=== PATIENT | female | born 1935 | race Caucasian/White ===

== ENCOUNTER → 2023-10-11 11:08 | Outpatient (REF) | payer OTHER, SELFPAY | LOC: HWRCS 11:08 | PROVIDERS: ATTENDING PHYSICIAN Family Medicine | DX: I10 Essential (primary) hypertension (principal); N18.31 Chronic kidney disease, stage 3a; R06.00 Dyspnea, unspecified | CPT/HCPCS: 93306 ==

== ENCOUNTER 2024-09-15 21:49 | Inpatient (IN) | payer OTHER, SELFPAY ==
[2024-09-15 13:41] VITALS: BP 160/104
[2024-09-15 13:56] LABS: % Basophils 0.3 % (0-2); % Eosinophils 0.7 % (0-6); % Immature Granulocytes 0.3 % (0-0.5); % Lymphocytes 11.8 % (20.5-51.1); % Monocytes 6.3 % (1.7-9.3); % Neutrophils 80.6 % (42.2-75.2); Absolute Eosinophils 0.1 10^3/uL (0-0.7); Absolute Lymphocytes 1.6 10^3/uL (1.2-3.4); Absolute Monocytes 0.9 10^3/uL (0.1-0.6); Absolute Neutrophils 10.8 10^3/uL (1.4-6.5); Hematocrit 40.1 % (37.0-47.0); Hemoglobin 13.7 g/dL (12.0-16.0); Mean Corp Hgb Conc. 34.2 g/dL (33.0-37.0); Mean Corpuscular Hgb 29.5 pg (27.0-31.0); Mean Corpuscular Volume 86.4 fL (81.0-99.0); Mean Platelet Volume 9.5 fL (7.4-10.4); Nucleated Red Blood Cells % 0 %; Platelet Count 201 10^3/uL (130-400); Red Blood Cell Count 4.64 10^6/uL (4.20-5.40); Red Cell Dist. Width 13.2 % (11.5-14.5); White Blood Cell Count 13.5 10^3/uL (4.8-10.8)
[2024-09-15 14:09] LABS: ALT (SGPT) 17 U/L (0-35); AST (SGOT) 20 U/L (14-36); Albumin 4.1 g/dl (3.5-5.0); Alkaline Phosphatase 65 U/L (38-126); Blood Urea Nitrogen 22 mg/dl (7-17); Calcium 9.8 mg/dl (8.4-10.2); Carbon Dioxide 25 mmol/L (22-30); Chloride 105 mmol/L (98-107); Glucose 106 mg/dl (70-99); Potassium 4.1 mmol/L (3.5-5.1); Sodium 138 mmol/L (135-145); Total Bilirubin 0.7 mg/dl (0.2-1.3); Total Protein 6.7 g/dl (6.3-8.2); eGFR > 60.00
[2024-09-15 16:40] VITALS: BMI 23.1
--- NOTE | 2024-09-15 16:42 | ED.GENMED ---
History of Present Illness
General
Chief Complaint: Cold/Flu/URI Symptoms
Source: patient and physician (Dr. Rebollar states patient has had cough and congestion for weeks, and was put on Ceftin 250 mg since 09/08/2024 for URI.)
Exam Limitations: none
Time Seen by Provider: 09/15/24 16:27
Nursing documentation reviewed up to this point in time: agreed with
History of Present Illness
History of Present Illness:
89-year-old female presents emergency department due to cough congestion for weeks, and abdominal cramping today.
Past History
Past History
ED Past Medical History: HTN, Hypercholesterolemia and Other (Glaucoma, migraines)
ED Past Surgical History: Other (Basal cell removed)
Social History
Tobacco: Non-smoker
Alcohol: Occasional
Personal:
Living: with family
Review of Systems
Review of Systems
Allergies reviewed?: Yes
All Other Systems: Not applicable
Constitutional: Reports no symptoms
EENT: Reports no symptoms
Respiratory: Reports cough
Cardiac: Reports no symptoms
ABD/GI: Reports no symptoms
: Reports no symptoms
Musculoskeletal: Reports no symptoms
Skin: Reports no symptoms
Neurological: Reports no symptoms
Endocrine: Reports no symptoms
Hematologic/Lymphatic: Reports no symptoms
Psychiatric: Reports no symptoms
Phy Exam
Physical Exam
Physical Exam:
Physical Exam
General: no apparent distress, not acutely ill
Neck: supple. no meningeal signs. normal posterior pharynx
Heart: s1/s2 regular rate and rhythm, no murmur. equal radial
pulses.
HEENT: Pupils equal round reactive to light, EOMI
Lungs: no acute respiratory distress. clear bilaterally
Abdomen: normal bowel sounds. Mild lower abdominal tenderness. no CVAT
Neuro: alert and oriented. no focal neurological deficits cranial nerves II through XII intact
Skin: no rash
Psychiatric: well kept. interactive and cooperative
Extremities: no edema. no calf tenderness. negative homans. good distal pulses
Course
Orders/Labs/Results
Orders:
Orders
09/15/24 13:45
CR Chest - 2 Views Urgent
Comment:
Reason For Exam: cough
09/15/24 13:49
Complete Blood Count/With Diff Urgent
Comprehensive Metabolic Panel Urgent
09/15/24 16:41
CT Abd/pel W Iv And Oral Contr Urgent
Comment:
Reason For Exam: lower abd pain, stool change
Iohexol [Omnipaque] See Protocol PO NOW STA
09/15/24 20:08
Ampicillin/Sulbactam 3 grams IVPB NOW Ampicillin/Sulbactam 3 G [Unasyn] 3 gm 0.9% Sodium Chloride 100 ml [Nss] 100 ml IV NOW
Abnormal Lab Results
09/15/24
13:49
WBC 13.5 H 10^3/uL
(4.8-10.8)
Absolute Neuts (auto) 10.8 H 10^3/uL
(1.4-6.5)
Absolute Monos (auto) 0.9 H 10^3/uL
(0.1-0.6)
Neutrophils % 80.6 H %
(42.2-75.2)
Lymphocytes % 11.8 L %
(20.5-51.1)
BUN 22 H mg/dl
(7-17)
Glucose 106 H mg/dl
(70-99)
09/15/24 13:49
09/15/24 13:49
Vital Signs
Initial and Last Documented VS:
Initial Vital Signs
Temp Pulse Resp BP Pulse Ox
100.1 F 94 16 160/104 98
09/15/24 13:41 09/15/24 13:41 09/15/24 13:41 09/15/24 13:41 09/15/24 13:41
Last Documented Vital Signs
Temp Pulse Resp BP Pulse Ox
100.1 F 94 16 160/104 98
09/15/24 13:41 09/15/24 13:41 09/15/24 13:41 09/15/24 13:41 09/15/24 13:41
MDM/Problems Addressed
Differential Diagnosis Includes:
Pneumonia, diverticulitis, colitis
MDM/Problems Addressed:
89-year-old female with colitis, suspect infectious cause. Admit to hospitalist for further treatment.
Chronic conditions affecting care: HTN
Acute Exacerbation and/or Progression of Chronic Illness: HTN
*Radiology
Radiology exam reviewed: radiology read reviewed (CT abdomen pelvis CT ab pelvis shows severe colitis, splenic artery aneurysm, renal cysts, chest x-ray no acute findings)
*Pulse Oximetry
Patient hypoxic: no
*Critical Care Note
Total Time (30-74mins, 75-104mins- exclusive of procedures): Not Applicable
Patient Management
Social determinants of health affecting care: Living situation and Strong social support
Discussion with other providers: Hospitalist
Escalation/DeEscalation of care consider admission/obs:
Admission indicated
ED Attending Note
-
Portions of this chart may have been created with voice recognition software.� Occasional wrong word or��sound alike� substitutions may have occurred due to the inherent limitations of voice recognition software.
Discharge Plan
Departure
Patient Disposition: Admit
Date of Disposition: 09/15/24
Time of Disposition: 19:56
Admit to: Med/Surg
Presentation/result/management discussed w/ accepting MD/DO: Hospitalist
Patient with high blood pressure during this ER visit?: Yes
Condition: Good
Discharge Problem:
Colitis
Prescriptions:
No Action
simvastatin 10 MG tablet
10 mg PO QPM
latanoprost 0.005 % drops
1 drp LEFT EYE HS
therapeutic multivitamin Tablet
1 tab PO DAILY
aspirin 81 mg Tablet,Delayed Release (Dr/Ec)
81 mg PO QPM
telmisartan 20 mg tablet
20 mg PO QPM
polyethylene glycol 3350 17 gram/dose powder
17 g PO DAILY Qty: 510 0RF
Referrals:
Vinny Rebollar, DO [Family Provider] -
Interventions
Interventions:
*Risk Screen - Suicide Last Done: 09/15/24 13:41
*General Assessment Last Done: 09/15/24 13:41
*Neglect/Abuse Screening Last Done: 09/15/24 13:41
*ED- Fall Risk Assessment Last Done: 09/15/24 13:41
*ED COVID-19 Vaccine History Last Done: 09/15/24 13:41
ED- Pulmonary Assessment Last Done: 09/15/24 16:35
Discharge Date and Time
Print Language: FRISIAN
[2024-09-15] MEDS: OMNIPAQUE 50 ML PO (16:54)
[2024-09-15 20:17] VITALS: BP 143/80
--- NOTE | 2024-09-15 20:32 | HPS.HSE ---
Addendum entered and electronically signed by Humza Ortega DO 09/15/24 22:17:
Patient seen and examined independently. Agree with findings and plan as set forth by DANTE He.
Patient is an 89y F with PMH significant for hypertension who presents to ED complaining of abdominal cramping with urinary and fecal frequency overnight. Patient states that she has been dealing with cough, cold. sinus symptoms for several
weeks. She has taken two recent courses of antibiotics including amoxicillin and Ceftin (which she is still on). Last PM, patient noted lower abdominal cramping. She states that she was up multiple times in the night to urinate and pass her
bowels - which is quite unusual for her. Bowels were described as small volume and 'pebbly'. Here in the ED, patient has had a single episode of loose stools diarrhea.
CT scan done in the ED shows significant colitis.
Ass:
Colitis
Sinusitis
Benign Hypertension
Plan:
Admit for further evaluation and treatment.
Empiric abx for now.
Given recent abx use, would begin PO Vanco pending CDiff studies.
Check stool cultures, etc (patient had loose stools here in the ED).
Supportive care including IVFs, pain control, etc.
GI evaluation for additional recommendations.
Supportive care for sinus symptoms - doubt additional abx will be helpful for this issue.
Continue usual home medications.
Original Note:
Family Physician
-
Family Physician: Vinny Rebollar
Chief Complaint
-
Sinus tenderness, nasal congestion, pressure in ears, generalized abdominal cramping with decreased appetite for the past 2 days
History of Present Illness
89-year-old female complaining of abdominal cramping today along with cough, nasal congestion with sinus pressure for the past several weeks. She reports she was put on amoxicillin for 2 weeks in the beginning of August it did not help her nasal
congestion postnasal drip and sinus pressure along with low-grade fevers. She was then put on Ceftin on 09/08/2024 for upper respiratory infection by her PCP Dr. Rebollar of which she has taken 7 out of 14-day dose. She noted some abdominal cramping
over the few weeks but contributed to swallowing nasal mucus however over the past 2 days the cramping has become worse with decreased appetite and some nausea she has been eating a regular diet has had no fever, chills, vomiting, mucus in stool or
blood chest pain, palpitations, shortness of breath, headache, diarrhea. She reports she has had some pebble-like stool with some formed stringy like stool but no mucus her last colonoscopy was years ago with Dr. Morales at that time she was told she
had diverticulosis she has never had history of diverticulitis or colitis. She did develop a low-grade fever 100.1 F while here. She complains of frontal and maxillary sinus point tenderness with erythematous nasal mucosa and pressure in her ears.
She has past medical history of hypertension hyperlipidemia, glaucoma, migraines, basal cell carcinoma with removal nose, diverticulosis.
Medical History
Past Medical History
Past Medical History: Reports Other
Additional Past Medical History:
hypertension
hyperlipidemia
glaucoma
migraines
basal cell carcinoma with removal nose
diverticulosis.
Past Surgical History: Reports Other
Additional Past Surgical History:
basal cell carcinoma with removal nose
Social History
Tobacco: Former Smoker (Quit 50 years ago)
Alcohol: Daily (1 glass of wine daily)
Drug: None
Personal: Single
Employment: Retired
Family History
Family History: Other (Mother history 59 heavy smoker of lung cancer, father 68 [place], 1 sister healthy and living in [place])
Allergies / Home Medications
Allergies reflects when Allergies were last updated in [employer].
Home Medications with original date entered in [employer]
Allergy/Medication List:
Allergies
Allergy/AdvReac Type Severity Reaction Status Date / Time
No Known Allergies Allergy Verified 10/01/22 12:59
Home Medications
simvastatin 10 mg tablet 10 mg PO QPM High cholesterol 07/29/10
aspirin 81 mg tablet,delayed release 81 mg PO QPM Blood clot prevention/tx 10/01/22
latanoprost 0.005 % eye drops 1 drp LEFT EYE HS Eye condition 10/01/22
telmisartan 20 mg tablet 20 mg PO QPM Blood clot prevention/tx 10/01/22
therapeutic multivitamin 1 tab PO DAILY Supplement 10/01/22
Ceftin 250 mg PO BID 09/15/24
Review of Systems
-
History Source: Patient
A 12 point ROS was completed and negative except as noted: Yes
Constitutional: Denies Fever, Fatigue or Chills
EENT: Reports Other (Erythematous nasal mucosa, fluid behind bilateral tympanic membranes but clear landmarks are visible, sinus point tenderness frontal and maxillary sinuses)
Respiratory: Reports Cough (Post postnasal drip); Denies Trouble Breathing
Cardiac: Denies Chest Pain, Diaphoresis, Palpitations or Syncope
Abdomen/GI: Reports Abdominal Pain (Generalized), Nausea (X 2 days), Constipated and Other (Hard pebble-like stool with occasional string-like formed stool no mucus or blood); Denies Vomiting or Diarrhea
: Denies Dysuria, Frequency, Flank Pain, Incontinence, Difficulty Voiding or Urgency
Musculoskeletal: Denies Joint Pain or Edema
Skin: Denies Itching or Rash
Neurological: Denies Dizzy, Headache or Weakness
Endocrine: Reports No Symptoms
Hematologic/Lymphatic: Reports No Symptoms
Psych: Reports Calm
Physical Exam
Vital Signs
Vital Signs
Temp Pulse Resp BP Pulse Ox
100.1 F 94 16 143/80 98
09/15/24 13:41 09/15/24 13:41 09/15/24 13:41 09/15/24 20:17 09/15/24 20:17
Physical Exam
General: Conversant; No Fever or Chills
HEENT: NormoCephalic, Anicteric, PERRLA, [place] Conjunctivae, No Ptosis, Ears Appear Normal, Neck Nontender and Other (Erythematous nasal mucosa, fluid behind bilateral tympanic membranes but clear landmarks are visible, sinus point tenderness frontal
and maxillary sinuses); No Pharyngeal Erythema
Respiratory: Clear; No Wheezes, Rales or Rhonchi
Cardiac: S1/S2 and Regular Rhythm
Breast: Deferred by me
GI: Soft, Non Distended, Normal Bowel Sounds (Generalized), Tender and No Hepatosplenomegaly
Genito-urinary: Deferred by me
Musculoskeletal: No Clubbing, No Cyanosis and No Edema
Skin: Warm and Dry; No Rash
Neuro: AO x 3, No Motor Deficits, Cranial Nerves Intact and No Sensory Deficits; No Slurred Speech, Facial Droop, Tremors or Sedated
Psych: Calm
Laboratory Results
-
09/15/24 13:49
09/15/24 13:49
Laboratory Results
Total Bilirubin 0.7 mg/dl (0.2-1.3) 09/15/24 13:49
AST 20 U/L (14-36) 09/15/24 13:49
ALT 17 U/L (0-35) 09/15/24 13:49
Alkaline Phosphatase 65 U/L (38-126) 09/15/24 13:49
Data Reviewed
-
CT Scan: Report Reviewed by me
Lab Data: Labs Reviewed by me
Impression/Plan
-
Impression/plan:
Admit to [facility]
#Abdominal pain secondary to moderate to Severe ACUTE COLITIS ascending/transverse/sigmoid colon and rectum
#History of severe diverticulosis sigmoid colon
-WBC 13.5 with left shift, 100.1 F, HR 94, 143/80
- Full liquid diet
- IV NSS
-IV Zosyn
-Consult GI
- Tylenol as needed fever
Pt with diarrhea while in ER @ 2141 Will add on stool studies, stool wbc , stool cdiff given recnet abx
CT abdomen pelvis with IV and oral contrast:
1. MODERATE to SEVERE ACUTE COLITIS in the ascending colon, transverse colon, sigmoid colon, and rectum. Diagnostic possibilities are (1) an acute infectious colitis or (2) acute inflammatory bowel disease.
2. Severe diverticulosis in the sigmoid colon and moderate diverticulosis in the ascending colon.
3. Large number of bilateral parapelvic renal cysts.
4. Severe calcific atherosclerotic plaque in the abdominal aorta.
5. 1.2 cm rim-calcified left upper quadrant splenic artery aneurysm.
6. Grade 1 anterolistheses of L3 on L4 and L4 on L5 secondary to severe facet joint arthrosis.
7. Transitional lumbosacral vertebral segment (partial sacralization of L5).
CXR:
1. Mild subsegmental atelectasis/scarring in the inferior segment of the lingula.
2. Mild elevation of the anterior right hemidiaphragm.
3. Severe calcific atherosclerotic plaque in the aorta.
# Acute sinusitis
- Patient has completed amoxicillin x 14 days she is on day 7 of Ceftin
- Recommended patient start Flonase or Nasonex as outpatient
- Will start Zyrtec 10 mg now and daily
#HTN�benign
BP 143/80
Continue telmisartan 20 mg every afternoon Continue olmesartan
#HLD
- Continue Zocor 10 mg every afternoon
#Glaucoma
- Continue latanoprost
#Migraines�no current migraine
#Basal cell carcinoma status post removal nose
Other PMH:
#1.2 cm rim calcified left upper quadrant splenic artery aneurysm per CT
#Severe facet joint arthrosis L3, L4 L4-L5 per CT
DVT prophylaxis
Subcu heparin
Full code
[2024-09-15] MEDS: UNASYN IV (21:03)
[2024-09-15] MEDS: ZYRTEC 10 MG PO (22:37)
[2024-09-15] MEDS: NSS 1000 IV (22:42)
[2024-09-16] MEDS: FIRVANQ 125 MG PO ×4 (01:09→18:10)
[2024-09-16] MEDS: ZOSYN 50 IV (05:33)
[2024-09-16 05:38] VITALS: BP 131/66
[2024-09-16 05:45] LABS: % Basophils 0.2 % (0-2); % Eosinophils 1.4 % (0-6); % Immature Granulocytes 0.5 % (0-0.5); % Lymphocytes 15.3 % (20.5-51.1); % Neutrophils 75.6 % (42.2-75.2); Absolute Eosinophils 0.1 10^3/uL (0-0.7); Absolute Lymphocytes 1.3 10^3/uL (1.2-3.4); Absolute Monocytes 0.6 10^3/uL (0.1-0.6); Absolute Neutrophils 6.5 10^3/uL (1.4-6.5); Hematocrit 32.7 % (37.0-47.0); Hemoglobin 11.2 g/dL (12.0-16.0); Mean Corp Hgb Conc. 34.3 g/dL (33.0-37.0); Mean Corpuscular Hgb 29.3 pg (27.0-31.0); Mean Corpuscular Volume 85.6 fL (81.0-99.0); Mean Platelet Volume 9.7 fL (7.4-10.4); Nucleated Red Blood Cells % 0 %; Platelet Count 170 10^3/uL (130-400); Red Blood Cell Count 3.82 10^6/uL (4.20-5.40); Red Cell Dist. Width 13.2 % (11.5-14.5); White Blood Cell Count 8.5 10^3/uL (4.8-10.8)
[2024-09-16 06:27] LABS: ALT (SGPT) 12 U/L (0-35); AST (SGOT) 18 U/L (14-36); Albumin 3.2 g/dl (3.5-5.0); Alkaline Phosphatase 50 U/L (38-126); Blood Urea Nitrogen 14 mg/dl (7-17); Calcium 8.1 mg/dl (8.4-10.2); Carbon Dioxide 20 mmol/L (22-30); Chloride 113 mmol/L (98-107); Estimated Creatinine Clearance 48 ml/min; Glucose 83 mg/dl (70-99); Potassium 3.8 mmol/L (3.5-5.1); Sodium 139 mmol/L (135-145); Total Bilirubin 0.8 mg/dl (0.2-1.3); Total Protein 5.4 g/dl (6.3-8.2); eGFR > 60.00
[2024-09-16 07:40] VITALS: BP 111/46
[2024-09-16] MEDS: THERAGRAN 1 TABLET PO (08:08)
[2024-09-16] MEDS: HEPARIN 5000 UNITS SC ×2 (08:08→20:06)
[2024-09-16] MEDS: ZYRTEC 5 MG PO (08:08)
[2024-09-16] MEDS: NSS 1000 IV ×2 (09:45→15:40)
--- NOTE | 2024-09-16 09:50 | CON.GI ---
Addendum entered and electronically signed by Marlo Cardenas MD 09/16/24 12:51:
I saw and examined the patient.
The biomedical engineering director note was reviewed and I agree with the note.
--abdominal pain/ diarrhea /CT abd -moderate to severe acute colitis in the ascending/transverse/sigmoid/rectum. recent antibiotic use / stool postive for c.diff + ( 1 st episode ). leukocytosis ( 13.5) on admission but repeat labs this am
resolved. unable to recall last colonoscopy > 10 yrs .
plan
Continue vancomycin 125 mg every 6 hours-started by medical team
Lactose-free low-fat diet as tolerated
Adequate hydration
Continue supportive care.
No further GI recommendation at this point. Will sign off
Original Note:
Consultation
-
Date/Time Consultation Requested: 09/16/24
Date/Time Consultation Performed: 09/16/24
Requesting Provider: Dr Marlo Cardenas
Performing Provider: Dr Neymar Kelly
Reason for Consultation: colitis
Medical History
Chief Complaint / HPI
History of Present Illness:
89-year-old female with history of hypertension, hyperlipidemia presented to the ED with abdominal pain, urinary and fecal urgency. Patient states that she was seen by PCP for URI, end of July, she was prescribed 14 day course of amoxicillin.
Patient reports that her symptoms did not subside and after she completed the course of antibiotic, after a week she returned to her PCP for persistent upper respiratory symptoms. Patient was prescribed Ceftin for additional 7 days, last dose
yesterday. Patient reports that last night she noted lower abdominal cramping. She woke up multiple times in the night to urinate and pass her bowels. She denies blood in the stool, described stools as lance/stone like. This prompted her to
come to the ED.
In the ED patient had her first episode of watery diarrhea, now it has increased to 5 episodes since last night. CT of abdomen/pelvis shows significant colitis of the ascending colon, transverse colon and sigmoid colon and. 2) C. difficile toxin
positive, other stool cultures are pending. No prior history of C. difficile infection in the past. Last colonoscope he was more than 10 years ago-- normal results, no polyps seen. Patient is a former smoker quit 50 years ago. Drinks alcohol,1
glass of wine daily.
Past Medical History
Past Medical History: HTN and Hypercholesterolemia
Social History
Tobacco: Former Smoker (quit 50 years ago )
Alcohol: Daily (one glass of red wine )
Drug: None
Personal: Single
Employment: Retired
Family History
Family History: Reviewed & Not Pertinent
Allergies / Home Medications
Allergy/AdvReac Type Severity Reaction Status Date / Time
No Known Allergies Allergy Verified 10/01/22 12:59
�Medication �Instructions �Recorded
simvastatin 10 mg tablet 10 mg PO QPM High cholesterol 07/29/10
aspirin 81 mg tablet,delayed 81 mg PO QPM Blood clot 10/01/22
release prevention/tx
latanoprost 0.005 % eye drops 1 drp LEFT EYE HS Eye condition 10/01/22
telmisartan 20 mg tablet 20 mg PO QPM Blood clot 10/01/22
prevention/tx
therapeutic multivitamin 1 tab PO DAILY Supplement 10/01/22
Ceftin 250 mg PO BID 09/15/24
Review of Systems
-
All other systems: A 12 pt ROS was Negative except as stated above in HPI
Vital Signs
Temp Pulse Resp BP Pulse Ox
98.7 F 65 15 111/46 97
09/16/24 07:43 09/16/24 07:43 09/16/24 07:43 09/16/24 07:40 09/16/24 07:41
Physical Exam
Exam
General: Comfortable
HEENT: Normocephalic and Anicteric
Respiratory: Clear
Cardiac: S1/S2 and Regular Rhythm
GI: Soft, Non Tender, Non Distended and Normal Bowel Sounds
Neuro: AO x 3
Psych: Calm
Results
WBC 8.5 10^3/uL (4.8-10.8) 09/16/24 05:29
Hgb 11.2 g/dL (12.0-16.0) L 09/16/24 05:29
Hct 32.7 % (37.0-47.0) L 09/16/24 05:29
MCV 85.6 fL (81.0-99.0) 09/16/24 05:29
Plt Count 170 10^3/uL (130-400) 09/16/24 05:29
Absolute Neuts (auto) 6.5 10^3/uL (1.4-6.5) 09/16/24 05:29
Sodium 139 mmol/L (135-145) 09/16/24 05:29
Potassium 3.8 mmol/L (3.5-5.1) 09/16/24 05:
Chloride 113 mmol/L (98-107) H 09/16/24 05:29
Carbon Dioxide 20 mmol/L (22-30) L 09/16/24 05:29
BUN 14 mg/dl (7-17) 09/16/24 05:29
Creatinine 0.7 mg/dL (0.6-1.0) 09/16/24 05:29
Calcium 8.1 mg/dl (8.4-10.2) L D 09/16/24 05:29
Total Bilirubin 0.8 mg/dl (0.2-1.3) 09/16/24 05:29
AST 18 U/L (14-36) 09/16/24 05:29
ALT 12 U/L (0-35) 09/16/24 05:29
Alkaline Phosphatase 50 U/L (38-126) 09/16/24 05:29
Diagnostic Image Results:
Prior GI Procedures:
EGD:
Colonoscopy: more than 10 years ago, normal results, no polyps were seen.
Assessment / Plan
-
Assessment and plan
Acute severe colitis with positive C. difficile infection (toxin positive )
No history of prior C. difficile infection, this is the first episode
Likely due to antibiotic use.
Continue oral vancomycin 125 mg QID
Other stool culture pending
Continue full liquids
This can be treated outpatient
Continue supportive care
Contact precaution
GI will sign off--- please call for any questions
# Essential hypertension
# Hyperlipidemia
DVT ppx- Heparin Subcu
-
-
Thank you for consultation and allowing me to participate in the patient's care. Please call the resolution expert GI physician during the after hours with any questions or concerns.
[2024-09-16] MEDS: VISBIOME 1 CAP PO (12:44)
[2024-09-16 13:45] VITALS: BP 139/69
[2024-09-16 14:01] VITALS: BMI 25.6
--- NOTE | 2024-09-16 14:19 | W.PN.HOSP.TC ---
Today's Communication/Plan
-
PT/OT
continue Vanco for C. Diff
IVF
Assessment / Plan
Assessment / Plan
Assessment:
C. Diff Colitis
- 1st episode
- continue Vancomycin, day 1
- continue probiotic
- Lactose-free low-fat diet as tolerated per GI
- GI signed off
Acute Sinusitis
- Patient has completed amoxicillin x 14 days she is on day 7 of Ceftin
- Recommended steroid nasal spray outpatient
- continue Zyrtec 10 mg now and daily
Essential HTN
- continue ARB
HLD
- continue statin
Glaucoma
- continue latanoprost
Migraines
� no current migraine
DVT ppx: SC Heparin
Code: Full
Anticipated Discharge: Within 24 hours
Subjective/Interval History
-
Date of Service: September 16, 2024
reports two episodes of diarrhea, hourly
denies abd pain
Objective Data
-
Labs:
Laboratory Results
09/16/24
05:29
WBC 8.5
Hgb 11.2 L
Hct 32.7 L
Plt Count 170
Sodium 139
Potassium 3.8
Chloride 113 H
Carbon Dioxide 20 L
BUN 14
Creatinine 0.7
Glucose 83
Calcium 8.1 L D
Total Bilirubin 0.8
AST 18
ALT 12
Alkaline Phosphatase 50
Vital Signs:
Vital Signs
Temp Pulse Resp BP Pulse Ox
98.2 F 91 16 139/69 97
09/16/24 13:45 09/16/24 13:45 09/16/24 13:45 09/16/24 13:45 09/16/24 13:45
I&O
09/15/24 09/16/24 09/17/24
06:59 06:59 06:59
Intake Total 800 / 800
Balance 800 / 800
Physical Exam
-
General: No Apparent Distress
HEENT: Normocephalic and Atraumatic
Respiratory: Negative Wheezes
Cardiac: Regular Rhythm and S1/S2
GI: Soft and Nontender
Genito-urinary: No Costovertebral Tender
Neuro: AO x 3
Hematologic / Lymphatic: No Lymphadenopathy
Psych: Calm
Data Reviewed
-
Total Time Spent with Patient (in minutes): 41
Labs: Labs Reviewed by me
--- NOTE | 2024-09-16 14:23 | PTCARENOTE ---
Pt admitted into 2121, walked independently into room. VSS, assessment as documented. Pt oriented to room, plan of care explained, call greenberg within reach.
[2024-09-16 15:17] VITALS: BP 129/66
[2024-09-16] MEDS: LIPITOR 10 MG PO (18:09)
[2024-09-16] MEDS: ASPIR LOW (ENTERIC COATED) 81 MG PO (18:09)
[2024-09-16] MEDS: COZAAR 25 MG PO (18:10)
[2024-09-16 23:05] VITALS: BP 122/69
[2024-09-17] MEDS: FIRVANQ 125 MG PO ×5 (00:20→23:49)
[2024-09-17 07:10] VITALS: BP 118/70
[2024-09-17 07:31] LABS: % Basophils 0.4 % (0-2); % Eosinophils 2.5 % (0-6); % Immature Granulocytes 0.4 % (0-0.5); % Lymphocytes 19.1 % (20.5-51.1); % Monocytes 7.5 % (1.7-9.3); % Neutrophils 70.1 % (42.2-75.2); Absolute Eosinophils 0.2 10^3/uL (0-0.7); Absolute Lymphocytes 1.4 10^3/uL (1.2-3.4); Absolute Monocytes 0.6 10^3/uL (0.1-0.6); Absolute Neutrophils 5.3 10^3/uL (1.4-6.5); Hematocrit 33.5 % (37.0-47.0); Hemoglobin 11.2 g/dL (12.0-16.0); Mean Corp Hgb Conc. 33.4 g/dL (33.0-37.0); Mean Corpuscular Hgb 29.1 pg (27.0-31.0); Mean Platelet Volume 10.2 fL (7.4-10.4); Nucleated Red Blood Cells % 0 %; Platelet Count 180 10^3/uL (130-400); Red Blood Cell Count 3.85 10^6/uL (4.20-5.40); Red Cell Dist. Width 13.2 % (11.5-14.5); White Blood Cell Count 7.5 10^3/uL (4.8-10.8)
[2024-09-17 08:04] LABS: ALT (SGPT) 12 U/L (0-35); AST (SGOT) 17 U/L (14-36); Alkaline Phosphatase 61 U/L (38-126); Blood Urea Nitrogen 12 mg/dl (7-17); Calcium 8.4 mg/dl (8.4-10.2); Carbon Dioxide 23 mmol/L (22-30); Chloride 112 mmol/L (98-107); Estimated Creatinine Clearance 37 ml/min; Glucose 88 mg/dl (70-99); Potassium 3.8 mmol/L (3.5-5.1); Sodium 139 mmol/L (135-145); Total Bilirubin 0.7 mg/dl (0.2-1.3); Total Protein 5.3 g/dl (6.3-8.2); eGFR > 60.00
[2024-09-17] MEDS: VISBIOME 1 CAP PO (09:04)
[2024-09-17] MEDS: THERAGRAN 1 TABLET PO (09:04)
[2024-09-17] MEDS: HEPARIN 5000 UNITS SC ×2 (09:04→20:47)
[2024-09-17] MEDS: ZYRTEC 5 MG PO (09:05)
[2024-09-17] MEDS: REFRESH EYE DROPS (PF) 1 DROPS OPHTH (11:40)
--- NOTE | 2024-09-17 12:53 | PTOTSP ---
Orders received. Chart reviewed. Pt currently at mod I level with basic self care, transfers and functional mobility in room and bathroom without AD. No skilled OT services indicated at this time. Will sign off.
--- NOTE | 2024-09-17 12:54 | CM ---
manager of sustainability reviewed patient's chart and met with patient and patient reports that she lives alone since her spouse , patient resides in a 2nd floor apartment, with elevator, patient is independent with adl's and ambulation, no dme, plan
is to home alone when stable.
PCP: Dr. Rebollar
Pharmacy: [facility] in [place]
Plan; Home alone when stable.
--- NOTE | 2024-09-17 14:44 | W.PN.HOSP.TC ---
Today's Communication/Plan
-
likely dc in 24 hours if diarrhea burden improving
Assessment / Plan
Assessment / Plan
Assessment:
C. Diff Colitis
- 1st episode
- continue Vancomycin, day 2
- continue probiotic
- Lactose-free low-fat diet as tolerated per GI
- GI signed off
Acute Sinusitis
- Patient has completed amoxicillin x 14 days she is on day 7 of Ceftin
- Recommended steroid nasal spray outpatient
- continue Zyrtec 10 mg now and daily
Essential HTN
- continue ARB
HLD
- continue statin
Glaucoma
- continue latanoprost
Migraines
� no current migraine
DVT ppx: SC Heparin
Code: Full
Anticipated Discharge: Within 24 hours
Subjective/Interval History
-
Date of Service: September 17, 2024
diarrhea slowly improving
denies any new complaints
Objective Data
-
Labs:
Laboratory Results
09/17/24
06:03
WBC 7.5
Hgb 11.2 L
Hct 33.5 L
Plt Count 180
Sodium 139
Potassium 3.8
Chloride 112 H
Carbon Dioxide 23
BUN 12
Creatinine 0.8
Glucose 88
Calcium 8.4
Total Bilirubin 0.7
AST 17
ALT 12
Alkaline Phosphatase 61
Vital Signs:
Vital Signs
Temp Pulse Resp BP Pulse Ox
98.5 F 75 16 118/70 96
09/17/24 07:10 09/17/24 07:10 09/17/24 07:10 09/17/24 07:10 09/17/24 07:10
I&O
09/16/24 09/17/24 09/18/24
06:59 06:59 06:59
Intake Total 1580 / 1580
Balance 1580 / 1580
Physical Exam
-
General: No Apparent Distress
HEENT: Normocephalic and Atraumatic
Respiratory: Negative Wheezes
Cardiac: Regular Rhythm and S1/S2
GI: Soft and Nontender
Genito-urinary: No Costovertebral Tender
Musculoskeletal: No Edema
Neuro: AO x 3
Hematologic / Lymphatic: No Lymphadenopathy
Psych: Calm
Data Reviewed
-
Total Time Spent with Patient (in minutes): 45
Labs: Labs Reviewed by me
[2024-09-17 15:14] VITALS: BP 128/65
[2024-09-17] MEDS: LIPITOR 10 MG PO (17:27)
[2024-09-17] MEDS: ASPIR LOW (ENTERIC COATED) 81 MG PO (17:27)
[2024-09-17] MEDS: COZAAR 25 MG PO (17:27)
[2024-09-17] MEDS: ANESTHETIC LOZENGE 1 LOZENGE PO (21:11)
[2024-09-17 23:05] VITALS: BP 117/66
[2024-09-18] MEDS: FIRVANQ 125 MG PO ×2 (05:22→11:34)
[2024-09-18] MEDS: ANESTHETIC LOZENGE 1 LOZENGE PO (05:38)
[2024-09-18 06:44] LABS: % Basophils 0.5 % (0-2); % Eosinophils 3.5 % (0-6); % Immature Granulocytes 0.4 % (0-0.5); % Lymphocytes 25.3 % (20.5-51.1); % Monocytes 8.8 % (1.7-9.3); % Neutrophils 61.5 % (42.2-75.2); Absolute Eosinophils 0.2 10^3/uL (0-0.7); Absolute Lymphocytes 1.4 10^3/uL (1.2-3.4); Absolute Monocytes 0.5 10^3/uL (0.1-0.6); Absolute Neutrophils 3.4 10^3/uL (1.4-6.5); Hematocrit 32.7 % (37.0-47.0); Hemoglobin 11.1 g/dL (12.0-16.0); Mean Corp Hgb Conc. 33.9 g/dL (33.0-37.0); Mean Corpuscular Hgb 29.4 pg (27.0-31.0); Mean Corpuscular Volume 86.5 fL (81.0-99.0); Mean Platelet Volume 10.3 fL (7.4-10.4); Nucleated Red Blood Cells % 0 %; Platelet Count 183 10^3/uL (130-400); Red Blood Cell Count 3.78 10^6/uL (4.20-5.40); Red Cell Dist. Width 12.9 % (11.5-14.5); White Blood Cell Count 5.5 10^3/uL (4.8-10.8)
[2024-09-18 07:10] LABS: ALT (SGPT) 12 U/L (0-35); AST (SGOT) 16 U/L (14-36); Albumin 2.8 g/dl (3.5-5.0); Alkaline Phosphatase 55 U/L (38-126); Blood Urea Nitrogen 14 mg/dl (7-17); Calcium 8.7 mg/dl (8.4-10.2); Carbon Dioxide 23 mmol/L (22-30); Chloride 110 mmol/L (98-107); Estimated Creatinine Clearance 37 ml/min; Glucose 83 mg/dl (70-99); Potassium 3.9 mmol/L (3.5-5.1); Sodium 139 mmol/L (135-145); Total Bilirubin 0.6 mg/dl (0.2-1.3); eGFR > 60.00
[2024-09-18 07:12] VITALS: BP 127/67
[2024-09-18] MEDS: VISBIOME 1 CAP PO (07:41)
[2024-09-18] MEDS: ZYRTEC 5 MG PO (07:41)
[2024-09-18] MEDS: THERAGRAN 1 TABLET PO (07:41)
[2024-09-18] MEDS: HEPARIN 5000 UNITS SC (07:41)
--- NOTE | 2024-09-18 10:13 | W.PN.HOSP.TC ---
Today's Communication/Plan
-
dc home
Assessment / Plan
Assessment / Plan
Assessment:
C. Diff Colitis
- 1st episode
- continue Vancomycin, day 07/20
- continue probiotic
- Lactose-free low-fat diet as tolerated per GI
- GI signed off
Acute Sinusitis
- Patient has completed amoxicillin x 14 days she is on day 7 of Ceftin; stop Abx at discharge
- Recommended steroid nasal spray outpatient
- continue Zyrtec 10 mg now and daily
Essential HTN
- continue ARB
HLD
- continue statin
Glaucoma
- continue latanoprost
Migraines
� no current migraine
DVT ppx: SC Heparin
Code: Full
More than 30 minutes spent in discharge including
Final examination of the patient
Summarizing hospital stay
Instructions for continuing care to all relevant caregivers
Preparation of discharge records, prescriptions, and referral forms
Total time spent (in minutes): 41
Anticipated Discharge: Today
Subjective/Interval History
-
Date of Service: September 18, 2024
diarrhea slowing in frequency and less volume
tolerating diet
no acute complaints otherwise
Objective Data
-
Labs:
Laboratory Results
09/18/24
05:25
WBC 5.5
Hgb 11.1 L
Hct 32.7 L
Plt Count 183
Sodium 139
Potassium 3.9
Chloride 110 H
Carbon Dioxide 23
BUN 14
Creatinine 0.8
Glucose 83
Calcium 8.7
Total Bilirubin 0.6
AST 16
ALT 12
Alkaline Phosphatase 55
Vital Signs:
Vital Signs
Temp Pulse Resp BP Pulse Ox
97.8 F 66 16 127/67 97
09/18/24 07:12 05/09/25 07:12 09/18/24 07:12 09/18/24 07:12 09/18/24 07:12
I&O
09/17/24 09/18/24 09/19/24
06:59 06:59 06:59
Intake Total 1580 / 1580 480 / 480
Balance 1580 / 1580 480 / 480
Physical Exam
-
General: No Apparent Distress
HEENT: Normocephalic and Atraumatic
Respiratory: Negative Wheezes
Cardiac: Regular Rhythm and S1/S2
GI: Soft
Genito-urinary: No Costovertebral Tender
Neuro: AO x 3
Psych: Calm
Data Reviewed
-
Total Time Spent with Patient (in minutes): 41
Labs: Labs Reviewed by me
--- NOTE | 2024-09-18 10:18 | W.DS.TRANS ---
DC Summary - Customer Consultant
-
Discharge Instructions:
Discharge Diagnosis/Procedures C. Diff colitis
Diet Low Fat
Additional Diets low lactose
Activity As tolerated
Instructions:
Stand-Alone Forms:
Changes to Home Medications: No
Discharge Medications:
DC Medications w/original date entered in [facility]
simvastatin 10 mg tablet 10 mg PO QPM High cholesterol 07/29/10
aspirin 81 mg tablet,delayed release 81 mg PO QPM Blood clot prevention/tx 10/01/22
latanoprost 0.005 % eye drops 1 drp LEFT EYE HS Eye condition 10/01/22
telmisartan 20 mg tablet 20 mg PO QPM Blood clot prevention/tx 10/01/22
therapeutic multivitamin 1 tab PO DAILY Supplement 10/01/22
Lactobac/Bifidobac [Visbiome] 1 cap PO DAILY #30 caps 09/18/24
cetirizine 10 mg tablet 5 mg (1/2 x 10 mg) PO DAILY #30 tabs 09/18/24
vancomycin 125 mg capsule 125 mg PO QID #32 caps 09/18/24
Home Medication Changes
Pending Results: No
Total time spent discharging patient (in min): 41
--- NOTE | 2024-09-18 11:17 | CM ---
CM following re: discharge planning.
Reviewed pt's chart, met with pt.
Discharge order noted. Pt is aware, expressed her agreement with discharge. IMM reviewed, placed on chart, pt has a copy.
Pt reports she lives alone in a 2SH, has 3 supportive children, recently at [facility]. Emotional support offered and provided. Pt reports she is coping well with the lost of her .
Pt described herself as independent in all areas [employer], drives and pt stated her car parked on the parking lot and she will drive home.
No after care VN services indicated.
D/C plan: home no needs. Pt will drive home.
[2024-09-18 12:01] VITALS: BP 141/78
== END 2024-09-18 12:20 | disposition home or self-care (01) | DRG 373 ==
LOC: 2 NORTH 21:49
PROVIDERS: Clinical Nurse Specialist Family Health; Physician Assistant; ADMITTING PHYSICIAN Hospitalist; ATTENDING PHYSICIAN Internal Medicine; CONSULT PHYSICIAN Internal Medicine Gastroenterology; EMERGENCY PHYSICIAN Emergency Medicine; FAMILY PHYSICIAN Family Medicine
DX: A04.72 Enterocolitis due to Clostridium difficile, not specified as recurrent (principal); J01.90 Acute sinusitis, unspecified; I10 Essential (primary) hypertension; H40.9 Unspecified glaucoma; G43.909 Migraine, unspecified, not intractable, without status migrainosus; Z79.82 Long term (current) use of aspirin; Z85.828 Personal history of other malignant neoplasm of skin; E78.00 Pure hypercholesterolemia, unspecified; Z87.891 Personal history of nicotine dependence; Z80.1 Family history of malignant neoplasm of trachea, bronchus and lung
CPT/HCPCS: 71046; 74177; 80053; 85025; 87045; 87046; 87077; 87324; 87427; 87449; 89055; Q9967